=== PATIENT | female | born 1980 | race Caucasian/White ===

== ENCOUNTER 2023-12-04 09:08 | Emergency (ER) | payer MEDICAID ==
[~2023-12-04] VITALS: Ht 167.6 cm; Wt 77.6 kg
[2023-12-04 09:10] VITALS: BP_SYST 132; PULSE 83; RESP 19; TEMP 98.1; O2SAT 99
[2023-12-04] MEDS ORDERED: GUAI100S14 PO (13:32)
[2023-12-04] MEDS ORDERED: AZIT-93 PO (13:32)
== END 2023-12-04 13:15 | disposition home or self-care (01) ==
LOC: SED 09:08
DX: J40 Bronchitis, not specified as acute or chronic (principal); Z88.5 Allergy status to narcotic agent; Z79.899 Other long term (current) drug therapy; Z79.2 Long term (current) use of antibiotics
CPT/HCPCS: 71045; 99283